=== PATIENT | female | born 2005 | race Caucasian/White ===

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

== ENCOUNTER 2023-03-08 00:52 | Emergency (ER) | payer OTHER, SELFPAY | END 2023-03-08 01:21 | disposition home or self-care (01) | LOC: BURERS 00:52 | DX: O9A.213 Injury, poisoning and certain other consequences of external causes complicating pregnancy, third trimester (principal); S30.811A Abrasion of abdominal wall, initial encounter; O99.333 Smoking (tobacco) complicating pregnancy, third trimester; F17.290 Nicotine dependence, other tobacco product, uncomplicated; Z3A.37 37 weeks gestation of pregnancy | CPT/HCPCS: 99283 ==

== ENCOUNTER 2025-04-28 17:36 | Emergency (ER) | payer OTHER ==
[2025-04-28 19:07] LABS: #Basophils 0.1 thou/uL (0.0-0.2); #Eosinophils 0.1 thou/uL (0.0-0.7); #Lymphocytes 3.5 thou/uL (1.20-3.40); #Monocytes 0.7 thou/uL (0.11-0.59); #Neutrophils 2.9 thou/uL (1.40-6.50); %Basophils 1.3 % (0.0-1.0); %Eosinophils 1.4 % (0.0-10.0); %Lymphocytes 47.9 % (21.0-51.0); %Monocytes 9.2 % (0.0-10.0); %Neutrophils 40.2 % (42.0-75.0); Hematocrit 41.6 % (36.0-47.0); Hemoglobin 13.8 g/dL (12.0-16.0); Mean Corpuscular Hemoglobin 26.0 pg (27.0-31.0); Mean Corpuscular Volume 78.4 fl (78.0-98.0); Platelet Count 375 10x3/uL (130-400); Red Blood Cell (RBC) Count 5.31 mill/uL (4.20-5.40); White Blood Cell (WBC) Count 7.3 10x3/uL (4.8-10.8)
[2025-04-28 19:22] LABS: ALT (SGPT) 50 U/L (Less than 34); AST (SGOT) 32 U/L (11-34); Albumin 4.9 g/dL (3.1-4.5); Alkaline Phosphatase 78 U/L (40-110); Anion Gap 17 mmol/L (10-20); BUN (Urea Nitrogen) 19 mg/dL (7.0-18.7); Bicarbonate (HCO3v) 24.7 mmol/L (22.0-28.0); Bilirubin, Total 0.4 mg/dL (0.3-1.2); CO2 Tension (PvCO2) 46.7 mmHg (42.0-51.0); Calc. Creatinine Clearance 0 mL/min (70-130); Calcium 9.8 mg/dL (7.8-10.44); Calcium, Ionized 1.22 mmol/L (1.15-1.33); Carbon Dioxide 23 mmol/L (22-29); Chloride 103 mmol/L (98-107); Chloride 105 mmol/L (98-107); Globulin 3.1 g/dL (2.4-3.5); Glucose 92 mg/dL (70-105); Hemoglobin - Calc 14.6 g/dL (12.0-16.0); Potassium 4.1 mmol/L (3.5-5.1); Potassium 4.4 mmol/L (3.5-5.1); Sodium 139 mmol/L (136-145); Sodium 139 mmol/L (138-145); T. Carbon Dioxide 26.2 mmol/L (22.0-28.0); vO2 Saturation-calc 70.0 % (60.0-85.0)
== END 2025-04-28 19:50 | disposition home or self-care (01) ==
LOC: BURERS 17:36
DX: R06.02 Shortness of breath (principal); F17.290 Nicotine dependence, other tobacco product, uncomplicated
CPT/HCPCS: 36415; 71045; 80053; 82330; 82435; 82803; 84132; 84295; 85014; 85025; 85379; 93005